=== PATIENT | male | born 2005 | race Caucasian/White ===

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

== ENCOUNTER 2024-04-12 14:43 | Emergency (ER) | payer MEDICAID, SELFPAY ==
[2024-04-12] VITALS (8 sets, daily range): BP systolic 122–126; BP diastolic 78–81; PULSE 103–140; RESP 18–24; TEMP 37.1–37.2; O2SAT 95–99; BMI 32.3
--- NOTE | 2024-04-12 15:09 | EDS_ITS ---
HPI History of Present Illness Chief Complaint: Palpitations [facility] Medical History (Updated 04/12/24 @ 15:55 by Ellen Hicks) OEIS complex Home Medications ?Medication ?Instructions ?Recorded ?Last Taken ?Type amantadine HCl 100 mg capsule 100 mg PO QHS 05/16/21 Unknown History citalopram 20 mg tablet 20 mg PO BID 05/16/21 Unknown History loperamide 2 mg capsule 4 mg PO TID 05/16/21 Unknown History melatonin 10 mg sublingual tablet 10 mg sublingual QHS 05/16/21 Unknown History oxybutynin chloride 15 mg 15 mg PO QHS 05/16/21 Unknown History tablet,extended release 24 hr pantoprazole 20 mg tablet,delayed 20 mg PO DAILY 05/16/21 Unknown History release ziprasidone HCl 40 mg capsule 120 mg PO DAILY 05/16/21 Unknown History bupropion HCl 150 mg tablet,12 hr 150 mg PO BID 04/12/24 Unknown History sustained-release loperamide 1 mg/7.5 mL oral liquid 1 mg PO DAILY 04/12/24 Unknown History prazosin 2 mg capsule 2 mg PO QHS 04/12/24 Unknown History valbenazine 40 mg capsule 40 mg PO DAILY 04/12/24 Unknown History (Ingrezza) Allergy/AdvReac Type Severity Reaction Status Date / Time latex Allergy PT UNSURE Verified 04/12/24 14:48 OF REACTION lisdexamfetamine (From Allergy PT UNSURE Verified 04/12/24 14:48 Vyvanse) OF REACTION Social History (Updated 04/12/24 @ 15:55 by Ellen Hicks) household members: other current occupational status: disabled Smoking Status: Never smoker EXAM Physical Exam Const Vital Signs: 04/12/24 14:44 04/12/24 15:22 04/12/24 15:23 Temperature 99 F Temperature Source Temporal Pulse Rate 140 H Respiratory Rate 18 Respiratory Effort Normal Non-Labored Blood Pressure 122/81 H Blood Pressure Mean 94 Pulse Ox 96 96 Oxygen Delivery Method Room Air 04/12/24 15:44 04/12/24 16:00 04/12/24 17:00 Temperature Temperature Source Pulse Rate 130 H 108 H 108 H Respiratory Rate 21 H 24 H 24 H Respiratory Effort Blood Pressure Blood Pressure Mean Pulse Ox 97 99 98 Oxygen Delivery Method Room Air Room Air Room Air 04/12/24 18:00 04/12/24 18:39 Temperature 98.8 F Temperature Source Pulse Rate 103 H 103 H Respiratory Rate 24 H 24 H Respiratory Effort Blood Pressure 126/78 H Blood Pressure Mean 94 Pulse Ox 99 99 Oxygen Delivery Method MDM [facility] MDM Narrative Medical decision making narrative: HISTORY OF PRESENT ILLNESS: 19-year-old male presents with palpitations. He states He is fluid positive. He notes fast heart rate and chest pain. He states this began 2 days ago. He notes that his heart is racing. Denies leg swelling. Denies vomiting. Denies fever. Does note cough and shortness of breath. Notes prior to arrival he went into urgent care and they diagnosed him with the flu. He denies any sick contacts. The patient denies recent surgery in the last 4 weeks or immobilization in the last 3 days, denies previous diagnosis of DVT or PE, hemop tysis, unilateral leg swelling or malignancy with treatment the last 6 months or palliative. No estrogen use noted. REVIEW OF SYSTEMS: Pertinent positives: CP, palpitations Pertinent negatives: PHYSICAL EXAM: Nursing triage notes reviewed, Vital signs reviewed Constitutional: please see mdm HENT: MMM Eyes: Pupils equal round and reactive to light, Extraocular muscles intact Neck: No stridor, no JVD, full neck ROM Lungs: Clear to auscultation, No wheezing or rales. No increased work of breathing, no conversational dyspnea, no accessory muscle use, no nasal flaring. No respiratory distress noted Heart: Regular rate and rhythm, No murmurs, No rubs and No gallops, 2+ distal pulses (radial, femoral, posterior tibial) in all extremities Abdomen: Soft, there is no tenderness, rigidity, rebound or guarding, no obvious peritoneal signs, no palpable pulsatile abdominal masses, no auscultated abdominal bruit : No CVAT Extremities: No edema Neuro: No new focal neurological deficits, cranial nerves II through XII intact, 5/5 strength in all present extremities. Intact sensation to light touch in all present extremities, 2+ reflexes bilateral patella tendons. 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 EKG sinus tachycardia rate 153, normal axis, bronchiogenic at 518, no STEMI, no signs of WPW, ARVD or Brugada syndrome Per the patient he is influenzae positive CBC without leukocytosis, severe anemia, no thrombocytopenia. D-dimer negative, lower suspicion for PE High-sensitivity troponin is negative, no evidence of myocardial ischemia TSH within normal limits BMP with mild hyponatremia, hypokalemia, no evidence of HONORIO, anion gap I have personally reviewed the patient's chest x-ray. Chest x-ray is unremarkable for pulmonary edema, pneumothorax, pneumonia or focal cardiopulmonary abnormality. The synthesis of the patient's history, physical exam, labs images suggest likely fluid. Also suggest some dehydration as patient initial tachycardia improved with IV fluids. The patient and/or family, caregivers express understanding. The patient and/or family, caregivers agrees with the plan. Shared decision making: I will have a discussion with the patient and or visitors regarding risk/benefits of further testing or admission. They will be made aware of of the risk/benefits inherent in this decision they will be given the opportunity to voice understanding. Total critical care time today provided was at least 0 minutes. This excludes separately billable procedures. Critical care time (if documented) is secondary to the patient having high probability of clinically significant/life threatening deterioration in the patient's condition which required my urgent intervention. Impression: 1. Chest pain 2. Influenza A Dispo: Discharge home This note was generated with [employer] dictation software. It may contain incorrect words, spelling, and punctuation that were not noted in review of the chart prior to signing. Lab Data Labs: Laboratory Results - last 24 hr 04/12/24 15:24 WBC 5.9 RBC 5.30 Hgb 15.3 Hct 45.4 MCV 85.7 MCH 28.9 MCHC 33.7 RDW Std Deviation 37.5 RDW Coeff of Kelsi 12.2 Plt Count 159 MPV 9.8 Immature Gran % (Auto) 0.500 Neut % (Auto) 65.9 Lymph % (Auto) 9.8 L [place] % (Auto) 21.1 H Eos % (Auto) 2.0 Baso % (Auto) 0.7 Absolute Neuts (auto) 3.9 Absolute Lymphs (auto) 0.58 L Nucleated RBC % 0 D-Dimer Quant (PE/DVT) 0.34 Sodium 135 L Potassium 3.3 L Chloride 104 Carbon Dioxide 23.0 Anion Gap 8 BUN 20 H Creatinine 0.96 Estim Creat Clear Calc 107.44 Est GFR (MDRD) Af Amer 127 Est GFR (MDRD) Non-Af 105 BUN/Creatinine Ratio 20.8 H Glucose 106 Calcium 8.8 Troponin I High Sens < 3 L TSH 1.060 Free T4 1.16 Free T3 pg/dL 2.9 Radiography Diagnostic Testing: Clinical Impression(s) from Imaging Studies Chest X-Ray 04/12/24 15:35 IMPRESSION: Normal x-ray examination of the chest. Electronically Signed: Al Barcenas MD at 15:50 EST , Discharge Plan Triage Chief Complaint: Palpitations ED Provider: Wilder Marquez Dx/Rx/DC Orders Instructions: ED Influenza (Adult), ED Palpitations Prescriptions: No Action oxybutynin chloride 15 mg Tablet Extended Release 24hr 15 mg PO QHS loperamide 2 mg Capsule 4 mg PO TID amantadine HCl 100 mg capsule 100 mg PO QHS pantoprazole 20 mg Tablet,Delayed Release (Dr/Ec) 20 mg PO DAILY citalopram 20 mg Tablet 20 mg PO BID ziprasidone HCl 40 mg Capsule 120 mg PO DAILY melatonin 10 mg Tablet, Sublingual 10 mg sublingual QHS bupropion HCl 150 mg tablet sustained-release 12 hr 150 mg PO BID prazosin 2 mg capsule 2 mg PO QHS loperamide 1 mg/7.5 mL liquid 1 mg PO DAILY Ingrezza 40 mg capsule 40 mg PO DAILY Primary Care Provider: Facundo Lane Referrals: Facundo Lane DO [Primary Care Provider] - Activity Restrictions/Additional Instructions: Thank you for trusting us with your care today! Your labs images were reassuring. Specifically there is no signs of heart damage, thyroid dysfunction, blood clots, significant anemia or electrolyte disturbances, no sign of pneumonia. I suspect your heart racing and elevated heart rate were secondary to dehydration secondary to influenza. Please try to take in more oral fluid. Recommend Body Armor and Pedialyte. Please take Tylenol (2 pills, 650 mg), ibuprofen (2 pills, 400 mg) every 6 hours as needed for pain and fever control. Please return to the emergency department if your symptoms change or worsen. Please follow with your primary care physician for further outpatient evaluation and management. Print Language: Slovak Disposition Disposition: Home, Self Care Discharge Date/Time: 04/12/24 18:40
[2024-04-12] MEDS: 0.9% Normal Saline (1000mL) 1,000 ML 999 ML IV ×2 (15:29→16:52)
[2024-04-12] MEDS: Ondansetron 4 MG/2 ML Vial IV (15:30)
[2024-04-12] MEDS: Ketorolac 15 MG/ML Vial IV (15:30)
--- NOTE | 2024-04-12 15:35 | RAD_ITS ---
STUDY: X-RAY CHEST REASON FOR EXAM: Male, 19 years old. Chest pain TECHNIQUE: Single AP portable view of the chest. COMPARISON: None. FINDINGS: EKG electrodes are seen. The lungs are clear and expanded. There is no demonstrated pleural abnormality. Normal size heart. Normal mediastinum and nguyen. Normal visualized pulmonary arteries. Normal visualized aortic arch and descending thoracic aorta. Normal visualized thoracic spine. Normal visualized ribs, clavicles, and shoulders. There is no demonstrated abnormality of the visualized soft tissue structures of the upper abdomen. RAD/Chest 1 View (Portable) IMPRESSION: Normal x-ray examination of the chest. Electronically Signed: Al Barcenas MD at 15:50 EST ,
[2024-04-12 15:41] LABS: Absolute Lymphocyte Count 0.58 X10^3/uL (0.83-4.51); Absolute Neutrophil Count 3.9 X10^3/uL (2.0-7.7); Basophil# 0.04 X10^3/uL; Basophil% 0.7 % (0-1); Eosinophil# 0.12 X10^3/uL; Hematocrit 45.4 % (40-54); Hemoglobin 15.3 g/dL (13.0-16.5); Lymphocyte # 0.58 X10^3/ul (0.83-4.51); Lymphocyte % 9.8 % (19-41); Mean Corp Hgb Conc 33.7 g/dL (32-36); Mean Corpuscular Hgb 28.9 pg (27.0-32.0); Mean Corpuscular Volume 85.7 fL (80-94); Mean Platelet Vol. 9.8 fl (6.2-12.0); Monocyte# 1.25 X10^3/uL; Monocyte% 21.1 % (0-10); NRBC Flagged by Analyzer 0 % (0-5); Neutrophil % 65.9 % (47-70); POSITIVE DIFFERENTIAL YES; Platelet Count 159 K/mm3 (150-450); RBC Distribution Width CV 12.2 % (11.6-14.6); RBC Distribution Width SD 37.5 fl (35.1-43.9); White Blood Count 5.9 K/mm3 (4.4-11.0)
[2024-04-12 16:00] LABS: D-Dimer Quantitative (DVT/PE) 0.34 FEU/ug/m (0.27-0.49)
[2024-04-12 16:10] LABS: Anion Gap 8 (5-15); BUN 20 mg/dL (7-18); BUN/Creat Ratio 20.8 RATIO (10-20); Calcium,Total 8.8 mg/dL (8.5-10.1); Chloride 104 mmol/L (98-107); Creatinine, Serum 0.96 mg/dL (0.70-1.30); EST Glomerular Filtration Rate 105 mL/min (>60); Est Glom Filt Rate - Afr Amer 127 mL/min (>60); Estimated Creatinine Clearance 107.44 ml/min; Free T3 2.9 pg/mL (2.18-3.98); Glucose 106 mg/dL (74-106); Potassium 3.3 mmol/L (3.5-5.1); Sodium Level 135 mmol/L (136-145); T4 Free Direct 1.16 ng/dL (0.76-1.46); Troponin-I HS (w/2H Reflex) < 3 pg/mL (3.0-78.0)
[2024-04-12 17:36] LABS: Reflex Troponin-HS? (from REC) Y
== END 2024-04-12 18:40 | disposition home or self-care (01) ==
PROVIDERS: Emergency Provider Emergency Medicine; PCP Pediatrics; Visit Provider Emergency Medicine
DX: J10.1 Influenza due to other identified influenza virus with other respiratory manifestations (principal); R07.9 Chest pain, unspecified; R45.851 Suicidal ideations; E87.6 Hypokalemia; E87.1 Hypo-osmolality and hyponatremia; F32.A Depression, unspecified; R00.2 Palpitations
CPT/HCPCS: 71045; 80048; 84439; 84443; 84481; 84484; 85025; 85379; 93005; 96361; 96374; 96375; 99284; A4216; J2405